=== PATIENT | female | born 1940 | race American Indian/Alaskan Native ===

== ENCOUNTER 2018-01-16 22:59 | Emergency (ER) | payer MEDICARE ==
[2018-01-16 23:57] LABS: Basophils % (Auto) 0.7 % (0.0-1.8); Eosinophils # (Auto) 0.1 K/mm3 (0.0-0.4); Eosinophils % (Auto) 2.4 % (0.0-4.3); Hematocrit 35.9 % (30.3-42.9); Lymphocytes # (Auto) 1.6 K/mm3 (1.2-5.4); Mean Corpuscular HGB Conc 34 % (30-34); Mean Corpuscular Hemoglobin 29 pg (28-32); Mean Corpuscular Volume 87 fl (79-97); Monocytes # (Auto) 0.4 K/mm3 (0.0-0.8); Monocytes % (Auto) 9.3 % (0.0-7.3); Platelet Count 216 K/mm3 (140-440); Red Blood Count 4.12 M/mm3 (3.65-5.03); Red Cell Distribution Width 19.3 % (13.2-15.2)
[2018-01-17 00:19] LABS: Alanine Aminotransferase 17 units/L (7-56); Albumin 3.8 g/dL (3.9-5); BUN/Creatinine Ratio 18; Blood Urea Nitrogen 14 mg/dL (7-17); Calcium 9.3 mg/dL (8.4-10.2); Hemolysis Index 4
[2018-01-17 02:37] LABS: Bilirubin,Urine NEG (Negative); Blood,Urine NEG (Negative); Color,Urine Yellow (Yellow); Mucus,Urine FEW /HPF; Protein,Urine <15 mg/dL mg/dL (Negative)
[2018-01-17 02:47] LABS: Amphetamine Screen,Urine PRESUMPTIVE NEGATIVE; Benzodiazepines Screen,Urine PRESUMPTIVE NEGATIVE; Cannabinoid Screen,Urine PRESUMPTIVE NEGATIVE; Cocaine Screen,Urine PRESUMPTIVE NEGATIVE; Methadone Screen,Urine PRESUMPTIVE NEGATIVE; Opiate Screen,Urine PRESUMPTIVE NEGATIVE
--- NOTE | 2018-01-17 02:59 | Emergency Department Report ---
HPI - General Chief Complaint: Altered Mental Status Time Seen by Provider: 01/17/18 02:36 - HPI HPI: Room 26 The patient is an 78-year-old female presenting with a chief complaint altered mental status and right knee pain. The patient's states the patient was at his son's house. The states he came to the house at approximately 17:00 and the patient was complaining of pain in her right knee. He states he noticed some bruising above the right knee. He states approximately 2-3 hours later while the patient was sitting at rest she began acting sleepy and had decreased responsiveness. When asked about this the patient states she feels as though she "couldn't do nothing." 9 chest pain, shortness of breath nausea or vomiting. Patient denies any history of fevers. The patient states her knee pain has resolved and she is currently pain free. Location: Mental status Duration: [See above] Quality: Altered Severity: Moderate Modifying factors: [see above] Context: [see above] Mode of transportation: [not driving] ED Past Medical Hx - Past Medical History Hx Hypertension: Yes Hx CVA: Yes Hx Diabetes: Yes Hx Dementia: Yes Additional medical history: High Cholesterol - Surgical History Additional Surgical History: ankle surgery, ear surgery - Family History Family history: no significant - Social History Smoking Status: Never Smoker Substance Use Type: None - Medications Home Medications: Home Medications Medication Instructions Recorded Confirmed Last Taken Type Hydrochlorothiazide [HCTZ] 25 mg PO DAILY 03/21/16 03/21/16 Unknown History Pregabalin [Lyrica] 1 tab PO BID 03/21/16 03/21/16 Unknown History HYDROcodone/APAP 5-325 [Cameron 1 each PO Q6HR PRN #20 tablet 03/22/16 Unknown Rx 5/325] ED Review of Systems ROS: Stated complaint: INSECT BITES/RT LEG Other details as noted in HPI Constitutional: denies: fever Eyes: denies: eye pain ENT: denies: throat pain Respiratory: denies: shortness of breath Cardiovascular: denies: chest pain Gastrointestinal: denies: abdominal pain, nausea, vomiting Genitourinary: denies: dysuria Musculoskeletal: arthralgia Skin: change in color Neurological: confusion. denies: headache Physical Exam - Physical Exam Vital Signs: Vital Signs 01/16/18 01/16/18 01/16/18 22:32 22:45 23:00 Temperature Pulse Rate Respiratory Rate Blood Pressure 123/53 126/57 O2 Sat by Pulse 94 97 97 Oximetry 01/16/18 01/16/18 01/17/18 23:09 23:23 00:08 Temperature 97.6 F Pulse Rate 48 L Respiratory 18 Rate Blood Pressure 137/58 120/74 120/74 O2 Sat by Pulse 100 97 98 Oximetry 01/17/18 01/17/18 01/17/18 00:16 00:30 00:46 Temperature Pulse Rate 54 L 50 L 48 L Respiratory 16 17 15 Rate Blood Pressure 120/74 120/74 120/74 O2 Sat by Pulse 100 99 99 Oximetry 01/17/18 01/17/18 01/17/18 01:00 01:16 01:30 Temperature Pulse Rate 53 L 48 L Respiratory 9 L 12 14 Rate Blood Pressure 120/74 120/74 120/74 O2 Sat by Pulse 100 100 Oximetry 01/17/18 02:31 Temperature Pulse Rate 58 L Respiratory 18 Rate Blood Pressure O2 Sat by Pulse 100 Oximetry Physical Exam: GENERAL: The patient is well-developed well-nourished elderly female sitting in a wheelchair not appearing to be in acute distress. [] HEENT: Normocephalic. Atraumatic. Extraocular motions are intact. Patient has moist mucous membranes. NECK: Supple. Trachea midline CHEST/LUNGS: Clear to auscultation. There is no respiratory distress noted. HEART/CARDIOVASCULAR: Regular. There is no tachycardia. There is no gallop rub or murmur. ABDOMEN: Abdomen is soft, nontender. Patient has normal bowel sounds. There is no abdominal distention. SKIN: There is an approximately 3 cm diameter irregularly circular region of pale erythema/induration superior to the right knee. No lacerations. There is no diaphoresis. NEURO: The patient is awake and alert. The patient is cooperative. The patient has no focal neurologic deficits. The patient has normal speech. Cranial nerves II through XII grossly intact, no drift MUSCULOSKELETAL: There is no tenderness or deformity. ED Course Vital Signs 01/16/18 01/16/18 01/16/18 22:32 22:45 23:00 Temperature Pulse Rate Respiratory Rate Blood Pressure 123/53 126/57 O2 Sat by Pulse 94 97 97 Oximetry 01/16/18 01/16/18 01/17/18 23:09 23:23 00:08 Temperature 97.6 F Pulse Rate 48 L Respiratory 18 Rate Blood Pressure 137/58 120/74 120/74 O2 Sat by Pulse 100 97 98 Oximetry 01/17/18 01/17/18 01/17/18 00:16 00:30 00:46 Temperature Pulse Rate 54 L 50 L 48 L Respiratory 16 17 15 Rate Blood Pressure 120/74 120/74 120/74 O2 Sat by Pulse 100 99 99 Oximetry 01/17/18 01/17/18 01/17/18 01:00 01:16 01:30 Temperature Pulse Rate 53 L 48 L Respiratory 9 L 12 14 Rate Blood Pressure 120/74 120/74 120/74 O2 Sat by Pulse 100 100 Oximetry 01/17/18 02:31 Temperature Pulse Rate 58 L Respiratory 18 Rate Blood Pressure O2 Sat by Pulse 100 Oximetry - Reevaluation(s) Reevaluation #1: 01/17/18 04:05 Patient reports something (potentially television remote control) fell from above her striking her head in the frontal region just inside the hairline. There was no loss of consciousness but patient complained of headache. Examination of the scalp does not reveal any evidence of traumatic injury. I will send the patient back over for a repeat head CT for evaluation ED Medical Decision Making - Lab Data Result diagrams: 01/16/18 23:24 01/16/18 23:24 Laboratory Tests 01/16/18 01/16/18 01/16/18 23:21 23:24 23:24 WBC 4.9 RBC 4.12 Hgb 12.0 Hct 35.9 MCV 87 MCH 29 MCHC 34 RDW 19.3 H Plt Count 216 Lymph % (Auto) 32.0 Bee % (Auto) 9.3 H Eos % (Auto) 2.4 Baso % (Auto) 0.7 Lymph # 1.6 Bee # 0.4 Eos # 0.1 Baso # 0.0 Seg Neutrophils % 55.6 Seg Neutrophils # 2.7 Sodium 138 Potassium 3.7 Chloride 99.3 Carbon Dioxide 27 Anion Gap 15 BUN 14 Creatinine 0.8 Estimated GFR > 60 BUN/Creatinine Ratio 18 Glucose 116 H Calcium 9.3 Total Bilirubin 0.20 AST 22 ALT 17 Alkaline Phosphatase 73 Troponin T Total Protein 7.0 Albumin 3.8 L Albumin/Globulin Ratio 1.2 TSH Urine Color Yellow Urine Turbidity Clear Urine pH 5.0 Ur Specific [place] 1.019 Urine Protein <15 mg/dl Urine Glucose (UA) Neg Urine Ketones Neg Urine Blood Neg Urine Nitrite Neg Urine Bilirubin Neg Urine Urobilinogen 2.0 Ur Leukocyte Esterase Neg Urine WBC (Auto) 1.0 Urine RBC (Auto) 6.0 U Epithel Cells (Auto) 1.0 Urine Mucus Few Urine Opiates Screen Urine Methadone Screen Ur Barbiturates Screen Ur Phencyclidine Scrn Ur Amphetamines Screen U Benzodiazepines Scrn Urine Cocaine Screen U Marijuana (THC) Screen Drugs of Abuse Note Plasma/Serum Alcohol 01/16/18 01/16/18 01/16/18 23:24 23:24 23:47 WBC RBC Hgb Hct MCV MCH MCHC RDW Plt Count Lymph % (Auto) Bee % (Auto) Eos % (Auto) Baso % (Auto) Lymph # Bee # Eos # Baso # Seg Neutrophils % Seg Neutrophils # Sodium Potassium Chloride Carbon Dioxide Anion Gap BUN Creatinine Estimated GFR BUN/Creatinine Ratio Glucose Calcium Total Bilirubin AST ALT Alkaline Phosphatase Troponin T < 0.010 Total Protein Albumin Albumin/Globulin Ratio TSH 4.130 Urine Color Urine Turbidity Urine pH Ur Specific [place] Urine Protein Urine Glucose (UA) Urine Ketones Urine Blood Urine Nitrite Urine Bilirubin Urine Urobilinogen Ur Leukocyte Esterase Urine WBC (Auto) Urine RBC (Auto) U Epithel Cells (Auto) Urine Mucus Urine Opiates Screen Urine Methadone Screen Ur Barbiturates Screen Ur Phencyclidine Scrn Ur Amphetamines Screen U Benzodiazepines Scrn Urine Cocaine Screen U Marijuana (THC) Screen Drugs of Abuse Note Plasma/Serum Alcohol < 0.01 01/16/18 Unknown WBC RBC Hgb Hct MCV MCH MCHC RDW Plt Count Lymph % (Auto) Bee % (Auto) Eos % (Auto) Baso % (Auto) Lymph # Bee # Eos # Baso # Seg Neutrophils % Seg Neutrophils # Sodium Potassium Chloride Carbon Dioxide Anion Gap BUN Creatinine Estimated GFR BUN/Creatinine Ratio Glucose Calcium Total Bilirubin AST ALT Alkaline Phosphatase Troponin T Total Protein Albumin Albumin/Globulin Ratio TSH Urine Color Urine Turbidity Urine pH Ur Specific [place] Urine Protein Urine Glucose (UA) Urine Ketones Urine Blood Urine Nitrite Urine Bilirubin Urine Urobilinogen Ur Leukocyte Esterase Urine WBC (Auto) Urine RBC (Auto) U Epithel Cells (Auto) Urine Mucus Urine Opiates Screen Presumptive negative Urine Methadone Screen Presumptive negative Ur Barbiturates Screen Presumptive negative Ur Phencyclidine Scrn Presumptive negative Ur Amphetamines Screen Presumptive negative U Benzodiazepines Scrn Presumptive negative Urine Cocaine Screen Presumptive negative U Marijuana (THC) Screen Presumptive negative Drugs of Abuse Note Disclamer Plasma/Serum Alcohol - EKG Data -: EKG Interpreted by Ri EKG shows normal: sinus rhythm Rate: bradycardia (46 bpm) - EKG Data When compared to previous EKG there are: previous EKG unavailable Interpretation: nonspecific ST-T wave liam (flattened T waves in leads aVF, V3, V4, V5, V6) - Radiology Data Radiology results: report reviewed (CT head #1, CT head #2, right knee x-ray), image reviewed (CT head #1, CT head #2, right knee x-ray) [address] [address] Cat Scan Report Signed Patient: BEATRIZ BROWN MR#: [id number] : 1940 Acct:[id number] Age/Sex: 78 / F ADM Date: 01/16/18 Loc: ED Attending Dr: Ordering Physician: BENY NOBLES MD Date of Service: 01/17/18 Procedure(s): CT head/brain wo con Accession Number(s): [id number] cc: BENY NOBLES MD FINAL REPORT PROCEDURE: CT HEAD/BRAIN WO CON TECHNIQUE: Computerized tomography of the head was performed without contrast material. HISTORY: altered mental status COMPARISON: No prior studies are available for comparison. FINDINGS: Skull and scalp: Normal. Paranasal sinuses: Normal. Ventricles and subarachnoid spaces: Normal. Cerebrum: There is no evidence of acute intracranial hemorrhage, hematoma, infarction, midline displacement or mass. There is moderate atrophy. Moderate periventricular deep white matter changes noted.. Cerebellum and brainstem: No evidence of hemorrhage, acute infarction or mass. Vasculature: Normal. Comments: None. IMPRESSION: There is no evidence of an acute intracranial process. Moderate atrophy and moderate periventricular deep white matter changes noted. Transcribed By: [facility] Dictated By: ANSELMO PURVIS MD Electronically Authenticated By: ANSELMO PURVIS MD Signed Date/Time: 01/17/18350 DD/ 0 TD/TT: 01/17/[address] [address] XRay Report Signed Patient: BEATRIZ BROWN MR#: [id number] : 1940 Acct:[id number] Age/Sex: 78 / F ADM Date: 01/16/18 Loc: ED Attending Dr: Ordering Physician: BENY NOBLES MD Date of Service: 01/17/18 Procedure(s): XR knee 3V RT Accession Number(s): [id number] cc: BENY NOBLES MD Fluoro Time In Minutes: FINAL REPORT PROCEDURE: XR KNEE 3V RT TECHNIQUE: RIGHT knee radiographs, AP, lateral and oblique views. CPT 12637 HISTORY: pain COMPARISON: No prior studies are available for comparison. FINDINGS: Fracture (s) and/or Dislocation(s): None . Alignment: Normal . Joint space(s): Mild narrowing of the joint spaces. Slight spur formation off of the osseous structures.. Soft tissues: Normal . Bone mineralization: Normal . Foreign bodies: None . IMPRESSION: There is no evidence of an acute fracture or dislocation. Mild arthritis. Transcribed By: [facility] Dictated By: ANSELMO PURVIS MD Electronically Authenticated By: ANSELMO PURVIS MD Signed Date/Time: 01/17/18324 DD/ 4 TD/TT: 01/17/18324 [facility] [address] [place] [address] Cat Scan Report Signed Patient: BEATRIZ BROWN MR#: [id number] : 1940 Acct:[id number] Age/Sex: 78 / F ADM Date: 01/16/18 Loc: ED Attending Dr: Ordering Physician: BENY NOBLES MD Date of Service: 01/17/18 Procedure(s): CT head/brain wo con Accession Number(s): [id number] cc: BENY NOBLES MD FINAL REPORT PROCEDURE: CT HEAD/BRAIN WO CON TECHNIQUE: Computerized tomography of the head was performed without contrast material. HISTORY: headache after object fell striking head COMPARISON: Earlier the same date FINDINGS: Skull and scalp: Normal. Paranasal sinuses: Normal. Ventricles and subarachnoid spaces: Normal. Cerebrum: No evidence of hemorrhage, acute infarction or mass. Moderate atrophy and moderate periventricular deep white matter changes are noted. No change since prior exam.. Cerebellum and brainstem: No evidence of hemorrhage, acute infarction or mass. Vasculature: Normal. Comments: None. IMPRESSION: There is no evidence of an acute intracranial process. There is moderate atrophy and moderate periventricular deep white matter changes. No change since prior exam. Transcribed By: [facility] Dictated By: ANSELMO PURVIS MD Electronically Authenticated By: ANSELMO PURVIS MD Signed Date/Time: 01/17/18450 DD/ 0 TD/TT: 01/17/18450 - Differential Diagnosis bradycardia, ICH, TIA, dysrhythmia, altered mental status Critical care attestation.: If time is entered above; I have spent that time in minutes in the direct care of this critically ill patient, excluding procedure time. ED Disposition Clinical Impression: Acute alteration in mental status, Bradycardia Disposition: -09 OP ADMIT IP TO THIS HOSP Is pt being admited?: Yes Condition: Fair Referrals: FARIBA THURSTON MD [Primary Care Provider] - 3-5 Days Time of Disposition: 05:03 (hospitalist paged (Dr. Gege Graff))
--- NOTE | 2018-01-17 03:32 | XRay Report ---
FINAL REPORT PROCEDURE: XR KNEE 3V RT TECHNIQUE: RIGHT knee radiographs, AP, lateral and oblique views. CPT 43037 HISTORY: pain COMPARISON: No prior studies are available for comparison. FINDINGS: Fracture (s) and/or Dislocation(s): None . Alignment: Normal . Joint space(s): Mild narrowing of the joint spaces. Slight spur formation off of the osseous structures.. Soft tissues: Normal . Bone mineralization: Normal . Foreign bodies: None . IMPRESSION: There is no evidence of an acute fracture or dislocation. Mild arthritis.
--- NOTE | 2018-01-17 03:58 | Cat Scan Report ---
FINAL REPORT PROCEDURE: CT HEAD/BRAIN WO CON TECHNIQUE: Computerized tomography of the head was performed without contrast material. HISTORY: altered mental status COMPARISON: No prior studies are available for comparison. FINDINGS: Skull and scalp: Normal. Paranasal sinuses: Normal. Ventricles and subarachnoid spaces: Normal. Cerebrum: There is no evidence of acute intracranial hemorrhage, hematoma, infarction, midline displacement or mass. There is moderate atrophy. Moderate periventricular deep white matter changes noted.. Cerebellum and brainstem: No evidence of hemorrhage, acute infarction or mass. Vasculature: Normal. Comments: None. IMPRESSION: There is no evidence of an acute intracranial process. Moderate atrophy and moderate periventricular deep white matter changes noted.
--- NOTE | 2018-01-17 04:58 | Cat Scan Report ---
FINAL REPORT PROCEDURE: CT HEAD/BRAIN WO CON TECHNIQUE: Computerized tomography of the head was performed without contrast material. HISTORY: headache after object fell striking head COMPARISON: Earlier the same date FINDINGS: Skull and scalp: Normal. Paranasal sinuses: Normal. Ventricles and subarachnoid spaces: Normal. Cerebrum: No evidence of hemorrhage, acute infarction or mass. Moderate atrophy and moderate periventricular deep white matter changes are noted. No change since prior exam.. Cerebellum and brainstem: No evidence of hemorrhage, acute infarction or mass. Vasculature: Normal. Comments: None. IMPRESSION: There is no evidence of an acute intracranial process. There is moderate atrophy and moderate periventricular deep white matter changes. No change since prior exam.
[2018-01-17] MEDS ORDERED: SODIUM CHLORIDE FLUSH SYRINGE 10 ML IV PRN (06:02)
[2018-01-17] MEDS ORDERED: ZOFRAN IV PRN (06:02)
[2018-01-17] MEDS ORDERED: TYLENOL PO PRN (06:02)
--- NOTE | 2018-01-17 06:02 | History and Physical Report ---
History of Present Illness Date of examination: 01/17/18 History of present illness: 78-year-old woman with a history of diabetes, dementia, CVA, hyperlipidemia comes emergency room because the spouse found her withdecreased responsiveness. Early in the day, she complained of knee pain. Review of system is unobtainable secondary to dementia PAST MEDICAL HISTORY: Diabetes, dementia, CVA, hyperlipidemia PAST SURGICAL HISTORY: Ankle, ear SOCIAL HISTORY: Social alcohol, no drugs, tobacco FAMILY HISTORY: Hypertension Medications and Allergies Allergies Allergy/AdvReac Type Severity Reaction Status Date / Time bee venom protein (honey bee) Allergy Shortness Verified 01/17/18 00:26 of Breath Home Medications Medication Instructions Recorded Confirmed Last Taken Type Hydrochlorothiazide [HCTZ] 25 mg PO DAILY 03/21/16 03/21/16 01/16/18 History Pregabalin [Lyrica] 1 tab PO BID 03/21/16 03/21/16 01/16/18 History HYDROcodone/APAP 5-325 [[place] 1 each PO Q6HR PRN #20 tablet 03/22/16 Unknown Rx 5-325 mg TAB] Aspirin 01/17/18 Unknown History AtorvaSTATin 20 mg PO DAILY 01/17/18 01/17/18 01/16/18 History Hydrochlorothiazide 25 mg PO DAILY 01/17/18 01/17/18 01/16/18 History Lyrica 100 mg PO BID 01/17/18 01/17/18 01/16/18 History Memantine HCl 10 mg PO BID 01/17/18 01/17/18 01/16/18 History Exam - Physical Exam Narrative exam: Gen. appearance: Patient lying in bed, no apparent distress HEENT: Normocephalic, atraumatic, pupils equally round and reactive to light, extraocular movement intact, and no sclericterus,. No JVD or thyromegaly or nodule,neck supple, no carotid bruit ,mucous membranes moist, no exudate or erythema Heart: S1, S2, regular rate and rhythm Lungs: Clear bilaterally, breathing comfortable Abdomen: Positive bowel sounds, non-tender, nondistended, no organomegaly Extremity:no edema cyanosis, clubbing Skin: no rash, dry, warm Neuro: Oriented 3, cranial nerves II-12 intact, speech is fluent, motor and sensory intact - Constitutional Vitals: Temp Pulse Resp BP Pulse Ox 97.6 F 51 L 16 125/50 97 01/16/18 23:09 01/17/18 05:51 01/17/18 05:30 01/17/18 05:51 01/17/18 05:51 Results - Labs CBC & Chem 7: 01/16/18 23:24 01/16/18 23:24 Labs: Abnormal lab results 01/16/18 01/16/18 Range/Units 23:24 23:24 RDW 19.3 H (13.2-15.2) % Josephine % (Auto) 9.3 H (0.0-7.3) % Glucose 116 H (65-100) mg/dL Albumin 3.8 L (3.9-5) g/dL - Imaging and Cardiology CT Scan - head: report reviewed Assessment and Plan nee xray reviewed Assessment Bradycardia, symptomatic Dabetes Dementia CVA hyperlipidemia Plan Admit medicine Cardiac enzymes, consult cardiology Check fingersticks initiate insulin continue appropriate outpatient medications DVT prophylaxis
[2018-01-17] MEDS ORDERED: PREGABALIN PO SCH ×2 (10:00→19:00)
[2018-01-17] MEDS ORDERED: SODIUM CHLORIDE FLUSH SYRINGE 10 ML IV SCH (10:00)
[2018-01-17] MEDS ORDERED: LOVENOX SUB-Q SCH (10:00)
--- NOTE | 2018-01-17 13:40 | Consultation ---
History of Present Illness Consult date: 01/17/18 Requesting physician: NILS RODGERS Consult reason: bradycardia History of present illness: The patient is an 78-year-old female with a past medical history significant for HTN, HLP, DM, PVD, CVI, TIAs, occlusion of right internal carotid artery, diastolic dysfunction. She is followed in our office by Dr. Maher. She presented with complaints of AMS and right knee pain. The patient's states the patient was complaining of pain in her right knee. He states he noticed some bruising above the right knee and 2 areas on right knee which appear to be insect bites. He states approximately 2-3 hours later while the patient was sitting at rest she began acting sleepy. Pt denies any cardiac complaints, including chest pain, SOB, palpitations, n/v, diaphoresis, dizziness or syncope. Following arrival, pt was noted to have sinus bradycardia , HR in 40s, and thus cardiology has been consulted. On evaluation, pt is in NSR with HR 60s. Echo done 01/2017 showed EF 55-60%, impaired relaxation. PET MPI done 04/2017 was negative for significant ischemia, normal LVEF. Past History Past Medical History: diabetes, hypertension, hyperlipidemia, other (CVI; PVD; TIAs, occlusion of right internal carotid artery) Social history: lives with family. denies: smoking, alcohol abuse, prescription drug abuse Medications and Allergies Allergies Allergy/AdvReac Type Severity Reaction Status Date / Time bee venom protein (honey bee) Allergy Shortness Verified 01/17/18 00:26 of Breath Home Medications Medication Instructions Recorded Confirmed Last Taken Type Hydrochlorothiazide [HCTZ] 25 mg PO DAILY 03/21/16 03/21/16 01/16/18 History Pregabalin [Lyrica] 1 tab PO BID 03/21/16 03/21/16 01/16/18 History HYDROcodone/APAP 5-325 [[place] 1 each PO Q6HR PRN #20 tablet 03/22/16 Unknown Rx 5/325] Aspirin 01/17/18 Unknown History AtorvaSTATin 20 mg PO DAILY 01/17/18 01/17/18 01/16/18 History Donepezil HCl 5 mg PO DAILY 01/17/18 01/17/18 01/16/18 History Hydrochlorothiazide 25 mg PO DAILY 01/17/18 01/17/18 01/16/18 History Lyrica 100 mg PO BID 01/17/18 01/17/18 01/16/18 History Memantine HCl 10 mg PO BID 01/17/18 01/17/18 01/16/18 History Active Meds: Active Medications Acetaminophen (Tylenol) 650 mg PO Q4H PRN PRN Reason: Pain MILD(1-3)/Fever >100.5/MALDONADO Enoxaparin Sodium (Lovenox) 40 mg SUB-Q QDAY [facility] Last Admin: 01/17/18 09:45 Dose: 40 mg Miscellaneous Medication (Pregabalin [Lyrica]) 1 tab PO BID [facility] Ondansetron HCl (Zofran) 4 mg IV Q8H PRN PRN Reason: Nausea And Vomiting Sodium Chloride (Sodium Chloride Flush Syringe 10 Ml) 10 ml IV BID [facility] Sodium Chloride (Sodium Chloride Flush Syringe 10 Ml) 10 ml IV PRN PRN PRN Reason: LINE FLUSH Review of Systems Constitutional: lethargy, no weight loss, no weight gain, no fever, no chills, no sweats Ears, nose, mouth and throat: no ear pain, no nose pain, no sinus pressure, no sinus pain Cardiovascular: leg edema (chronic), no chest pain, no orthopnea, no palpitations, no rapid/irregular heart beat, no edema, no syncope, no lightheadedness, no shortness of breath, no dyspnea on exertion Gastrointestinal: no abdominal pain, no nausea, no vomiting, no diarrhea, no constipation, no change in bowel habits Genitourinary Female: no pelvic pain, no flank pain, no dysuria, no urinary frequency, no urgency Musculoskeletal: no neck stiffness, no neck pain Integumentary: no rash, no pruritis, no redness Neurological: no head injury, no paralysis, no weakness, no parathesias, no numbness, no tingling, no seizures, no syncope Psychiatric: no anxiety Endocrine: no cold intolerance, no heat intolerance Hematologic/Lymphatic: no easy bruising, no easy bleeding, no lymphadenopathy Allergic/Immunologic: no urticaria, no wheezing, no persistent infections Physical Examination Vital Signs Pulse Ox 94 01/16/18 22:32 General appearance: no acute distress HEENT: Positive: PERRL, Normocephaly, Mucus Membranes Moist Neck: Positive: neck supple, trachea midline Cardiac: Positive: Reg Rate and Rhythm, S1/S2 Lungs: Positive: clear to auscultation Neuro: Positive: Grossly Intact Abdomen: Positive: Soft. Negative: Tender Skin: Negative: Rash, Wound Musculoskeletal: No Pain Extremities: Present: +1 Edema (BLE, chronic venous stasis skin changes noted bilaterally ) Results 01/16/18 23:24 01/16/18 23:24 Cardiac Enzymes 01/16/18 Range/Units 23:24 AST 22 (5-40) units/L CBC 01/16/18 Range/Units 23:24 WBC 4.9 (4.5-11.0) K/mm3 RBC 4.12 (3.65-5.03) M/mm3 Hgb 12.0 (10.1-14.3) gm/dl Hct 35.9 (30.3-42.9) % Plt Count 216 (140-440) K/mm3 Lymph # 1.6 (1.2-5.4) K/mm3 [place] # 0.4 (0.0-0.8) K/mm3 Eos # 0.1 (0.0-0.4) K/mm3 Baso # 0.0 (0.0-0.1) K/mm3 Comprehensive Metabolic Panel 01/16/18 Range/Units 23:24 Sodium 138 (137-145) mmol/L Potassium 3.7 (3.6-5.0) mmol/L Chloride 99.3 (98-107) mmol/L Carbon Dioxide 27 (22-30) mmol/L BUN 14 (7-17) mg/dL Creatinine 0.8 (0.7-1.2) mg/dL Glucose 116 H (65-100) mg/dL Calcium 9.3 (8.4-10.2) mg/dL AST 22 (5-40) units/L ALT 17 (7-56) units/L Alkaline Phosphatase 73 (35-129) units/L Total Protein 7.0 (6.3-8.2) g/dL Albumin 3.8 L (3.9-5) g/dL - Imaging and Cardiology Echo: report reviewed (01/2017 showed EF 55-60%, impaired relaxation. ) EKG: report reviewed, image reviewed EKG interpretations - Telemetry EKG Rhythm: Sinus Rhythm - EKG Sinus rhythms and dysrhythmias: sinus rhythm Assessment and Plan Assessment: Asymptomatic sinus bradycardia - improved; TSH WNL AMS - improved; head CT with NAF RLE pain / ? insect bite - right knee XR with NAF HTN HLP DM PVD / CVI H/o TIAs H/o occlusion of right internal carotid artery Plan: Currently stable cardiac status. No plans for any additional cardiac evaluation at this time. Pt may discharge home from cardiology standpoint. Follow up in our [place] office with Dr. Maher on 03/14/2018 @ 2:00PM. The patient has been seen in conjunction with Dr. Mullins who agrees with the assessment and plan of care.
[2018-01-17 15:53] LABS: Creatine Kinase MB 1.3 ng/mL (0.0-4.0)
--- NOTE | 2018-01-17 16:21 | Discharge Summary ---
Providers - Providers Date of Admission: 01/17/18 06:02 Date of discharge: 01/17/18 Attending physician: LINETTE MULLER 01/17/18 06:02 Consult to Physician [CONS] Routine Comment: Consulting Provider: STEPHANIE HINDS Physician Instructions: Reason For Exam: BRADYCARDIA Primary care physician: FARIBA THURSTON MD Hospitalization Condition: Fair Hospital course: Patient is a 78-year-old woman with a medical history of HTN, HLP, DM, PVD, CVI , TIAs, occlusion of right internal carotid artery, diastolic dysfunction and Dementia who pw AMS, unresponsive state. Patient main compliant is bilateral knee pains and possible insect bites right knee. Pt was noted to have sinus bradycardia, HR in 40s, and thus cardiology has been consulted. Echo done 01/2017 showed EF 55-60%, impaired relaxation. PET MPI done 04/2017 was negative for significant ischemia, normal LVEF. Sinus bradycardia - improved; TSH WNL, hold off on Aricept AMS with encephalopathy, resolved RLE pain / ? insect bite - right knee XR with NAF: treat with Tylenol HTN HLP DM PVD / CVI H/o TIAs H/o occlusion of right internal carotid artery Patient has been cleared for discharge by Cardiology Disposition: DC-01 TO HOME OR SELFCARE Time spent for discharge: 32 min Core Measure Documentation - Palliative Care Palliative Care/ Comfort Measures: Not Applicable - Core Measures Any of the following diagnoses?: none - VTE Discharge Requirements Deep Vein Thrombosis/Pulmonary Embolism Present on Admission: No Has pt received <5 days of overlap therapy or INR<2.0: No Anticoagulant overlap therapy prescribed at discharge: No Contraindication No Overlap Therapy order at DC: Not Indicated Exam - Physical Exam Narrative exam: GEN: WDWN, NAD, Awake, Alert, Orientated x 1 HEENT: NCAT, EOMI, PERRL, OP Clear NECK: supple, no adenopathy, no thyromegaly, no JVD CVS/HEART: heart rate is SR 58 on repeat, normal S1S2, pulses present bilaterally CHEST/LUNGS: CTA B, Symmetrical chest expansion, good air entry bilaterally GI/Abdomen: soft, NTND, good bowel sounds, no guarding or rebound /Bladder: no suprapubic tenderness, no CVA or paraspinal tenderness EXT/Skin: ble edema MSK: FROM x 4 Neuro: CN 2-12 grossly intact, no new focal deficits Psych: calm - Constitutional Vitals: Temp Pulse Resp BP Pulse Ox 97.8 F 48 L 18 149/90 100 01/17/18 07:40 01/17/18 06:51 01/17/18 07:40 01/17/18 07:01 01/17/18 06:51 Plan Activity: up only with assistance, fall precautions, other (no strenous activity ) Diet: low salt, diabetic Additional Instructions: Stop the Aricept and notify PCP. Check heart rate daily Follow up with: FARIBA THURSTON MD [Primary Care Provider] - 3-5 Days CHARANDG BLOUNT MD [Staff Physician] - 03/14/18 2:00 pm
[2018-01-17 18:13] VITALS: BP 153/59
== END 2018-01-17 08:09 | disposition admitted as inpatient to this hospital (09) ==
LOC: ED 22:59 → 4A 01-17 06:02 → UNDOADMIN 01-17 06:02 → UNDODISIN 01-17 18:10
DX: M25.561 Pain in right knee (principal); R41.82 Altered mental status, unspecified; I10 Essential (primary) hypertension; E11.9 Type 2 diabetes mellitus without complications; E78.00 Pure hypercholesterolemia, unspecified
CPT/HCPCS: 36415; 70450; 73562; 80053; 80307; 81001; 82550; 82553; 84443; 84484; 85025; 93005; 93010; 99285; G0480; J1650; 80320

== ENCOUNTER 2018-03-14 15:41 | Inpatient (IN) | payer MEDICARE ==
[2018-03-14 18:11] LABS: Eosinophils % (Auto) 2.7 % (0.0-4.3); Hemoglobin 12.8 gm/dl (10.1-14.3); Lymphocytes % (Auto) 27.4 % (13.4-35.0)
[2018-03-14 18:28] LABS: INR 1.09 (0.87-1.13)
[2018-03-14 18:29] LABS: Partial Thromboplastin Time 37.3 Sec. (24.2-36.6)
[2018-03-14 18:42] LABS: Basophils % (Auto) 0.6 % (0.0-1.8); Eosinophils # (Auto) 0.1 K/mm3 (0.0-0.4); Hematocrit 39.1 % (30.3-42.9); Lymphocytes # (Auto) 1.2 K/mm3 (1.2-5.4); Mean Corpuscular HGB Conc 33 % (30-34); Mean Corpuscular Hemoglobin 29 pg (28-32); Mean Corpuscular Volume 88 fl (79-97); Monocytes # (Auto) 0.3 K/mm3 (0.0-0.8); Platelet Count 234 K/mm3 (140-440); Red Blood Count 4.46 M/mm3 (3.65-5.03); Red Cell Distribution Width 18.8 % (13.2-15.2)
--- NOTE | 2018-03-14 18:43 | Cat Scan Report ---
FINAL REPORT PROCEDURE: CT HEAD/BRAIN WO CON TECHNIQUE: Computerized tomography of the head was performed without contrast material. HISTORY: transient ams, hx of cva left weakness, dementia COMPARISON: 01/17/2018 FINDINGS: There are diffuse involutional changes in the right middle cerebral artery territory, unchanged compared to the prior study. There is no CT evidence of acute intracranial hemorrhage, mass, hydrocephalus, or acute territorial infarction. The intracranial arteries are symmetric in density. Calvarium is intact. Visualized paranasal sinuses and mastoids are aerated. IMPRESSION: No CT evidence of acute intracranial abnormality
[2018-03-14 20:04] LABS: Alanine Aminotransferase 26 units/L (7-56); Albumin 4.3 g/dL (3.9-5); BUN/Creatinine Ratio 10; Blood Urea Nitrogen 8 mg/dL (7-17); Calcium 9.4 mg/dL (8.4-10.2); Hemolysis Index 43
--- NOTE | 2018-03-14 21:33 | Emergency Department Report ---
ED Neuro Deficit HPI - General Chief Complaint: Neuro Symptoms/Deficit Stated Complaint: HEART PROBLEMS Time Seen by Provider: 03/14/18 21:26 Source: patient, family Mode of arrival: Wheelchair Limitations: Physical Limitation, Other - History of Present Illness Initial Comments: Patient is 78 years old female with history of multiple sclerosis stroke with left-sided weakness, dementia and bradycardia. Patient was sent from Dr. Greco office as the patient was unresponsive in his office. Patient was found to have a heart rate of 40 and she was told that her blood sugar was in the 70s. Patient is alert but disoriented in place and time but not person. Patient denied any new weakness. History is limited because of the patient condition and dementia. Presenting Symptoms: Present: Altered Mental Status - Related Data Home Medications: Home Medications Medication Instructions Recorded Confirmed Last Taken Pregabalin [Lyrica] 1 tab PO BID 03/21/16 03/14/18 01/16/18 hydroCHLOROthiazide [HCTZ] 25 mg PO DAILY 03/21/16 03/14/18 01/16/18 Aspirin 81 mg PO DAILY 01/17/18 03/14/18 Unknown AtorvaSTATin 20 mg PO DAILY 01/17/18 03/14/18 01/16/18 Hydrochlorothiazide 25 mg PO DAILY 01/17/18 03/14/18 01/16/18 Lyrica 100 mg PO BID 01/17/18 03/14/18 01/16/18 Memantine HCl 10 mg PO BID 01/17/18 03/14/18 01/16/18 Previous Rx's Medication Instructions Recorded Last Taken Type HYDROcodone/APAP 5-325 [[place] 1 each PO Q6HR PRN #20 tablet 03/22/16 Unknown Rx 5-325 mg TAB] Allergies/Adverse Reactions: Allergies Allergy/AdvReac Type Severity Reaction Status Date / Time bee venom protein (honey bee) Allergy Shortness Verified 01/17/18 00:26 of Breath ED Review of Systems ROS: Stated complaint: HEART PROBLEMS Other details as noted in HPI Comment: Unobtainable due to pts medical conditions ED Past Medical Hx - Past Medical History Previous Medical History?: Yes Hx Hypertension: Yes Hx CVA: Yes Hx Diabetes: Yes Hx Dementia: Yes Additional medical history: High Cholesterol - Surgical History Past Surgical History?: Yes Additional Surgical History: ankle surgery, ear surgery - Social History Smoking Status: Never Smoker Substance Use Type: None - Medications Home Medications: Home Medications Medication Instructions Recorded Confirmed Last Taken Type Pregabalin [Lyrica] 1 tab PO BID 03/21/16 03/14/18 01/16/18 History hydroCHLOROthiazide [HCTZ] 25 mg PO DAILY 03/21/16 03/14/18 01/16/18 History HYDROcodone/APAP 5-325 [[place] 1 each PO Q6HR PRN #20 tablet 03/22/16 03/14/18 Unknown Rx 5-325 mg TAB] Aspirin 81 mg PO DAILY 01/17/18 03/14/18 Unknown History AtorvaSTATin 20 mg PO DAILY 01/17/18 03/14/18 01/16/18 History Hydrochlorothiazide 25 mg PO DAILY 01/17/18 03/14/18 01/16/18 History Lyrica 100 mg PO BID 01/17/18 03/14/18 01/16/18 History Memantine HCl 10 mg PO BID 01/17/18 03/14/18 01/16/18 History ED Neuro Physical Exam - General Limitations: Altered Mental Status, Physical Limitation, Other General appearance: alert, in no apparent distress Suspected Stroke: Yes - Head Head exam: Present: atraumatic, normocephalic, normal inspection - Eye Eye exam: Present: normal appearance, PERRL - ENT ENT exam: Present: normal exam, normal orophraynx, mucous membranes moist - Neck Neck exam: Present: normal inspection, full ROM. Absent: tenderness, meningismus, lymphadenopathy, thyromegaly - Respiratory Respiratory exam: Present: normal lung sounds bilaterally. Absent: respiratory distress, wheezes, rales, rhonchi, accessory muscle use, decreased breath sounds , prolonged expiratory - Cardiovascular Cardiovascular Exam: Present: bradycardia - GI/Abdominal GI/Abdominal exam: Present: soft. Absent: distended, tenderness, guarding, rebound - Extremities Exam Extremities exam: Present: normal inspection, full ROM, normal capillary refill. Absent: pedal edema, calf tenderness - Back Exam Back exam: Present: normal inspection, full ROM - Neurological Exam Neurological exam: Present: alert, altered, CN II-XII intact - NIHSS Assessment Interval: Baseline 1a. Level of Consciousness: alert/keenly responsive 1b. LOC Questions: answers 1 question correctly 1c. LOC Commands: performs tasks correctly 2. Best Gaze: normal 3. Visual: no visual loss 4. Facial Palsy: normal symmetrical movement 5b. Motor Arm Right: no drift 5a. Motor Arm Left: no drift 6a. Motor Leg Left: no drift 6b. Motor Leg Right: no drift 7. Limb Ataxia: absent 8. Sensory: normal 9. Best Language: no aphasia 10. Dysarthria: normal 11. Extinction/Inattention: no abnormality Total Score: 1 Stroke Severity: Minor Stroke - Skin Skin exam: Present: warm, intact, normal color ED Course Vital Signs 03/14/18 03/14/18 03/14/18 17:02 21:14 22:00 Temperature 97.4 F L 98 F Pulse Rate 58 L 54 L 52 L Respiratory 20 16 13 Rate Blood Pressure 156/72 130/110 Blood Pressure 130/100 [Right] O2 Sat by Pulse 100 96 96 Oximetry - Reevaluation(s) Reevaluation #1: 03/14/18 22:30 I discussed the patient is Dr. Bhatt from [facility], advised to admit patient and they will see the patient in the morning. - EJ/Peripheral Line Neck R Time Out Performed: Yes Indications: nurses unable to establis Skin Cleansed in Sterile Fashion: Yes Size: 18 Dressing Placed: Tegaderm, tape Patient Tolerated Procedure: well, no complications - Lab Data Result diagrams: 03/14/18 17:36 03/14/18 17:36 Lab Results 03/14/18 03/14/18 03/14/18 Range/Units 17:15 17:36 17:36 WBC 4.5 (4.5-11.0) K/mm3 RBC 4.46 (3.65-5.03) M/mm3 Hgb 12.8 (10.1-14.3) gm/dl Hct 39.1 (30.3-42.9) % MCV 88 (79-97) fl MCH 29 (28-32) pg MCHC 33 (30-34) % RDW 18.8 H (13.2-15.2) % Plt Count 234 (140-440) K/mm3 Lymph % (Auto) 27.4 (13.4-35.0) % [place] % (Auto) 7.0 (0.0-7.3) % Eos % (Auto) 2.7 (0.0-4.3) % Baso % (Auto) 0.6 (0.0-1.8) % Lymph # 1.2 (1.2-5.4) K/mm3 [place] # 0.3 (0.0-0.8) K/mm3 Eos # 0.1 (0.0-0.4) K/mm3 Baso # 0.0 (0.0-0.1) K/mm3 Seg Neutrophils % 61.6 (40.0-70.0) % Seg Neutrophils # 2.8 (1.8-7.7) K/mm3 PT (12.2-14.9) Sec. INR (0.87-1.13) APTT (24.2-36.6) Sec. Sodium 139 (137-145) mmol/L Potassium 3.4 L (3.6-5.0) mmol/L Chloride 98.9 (98-107) mmol/L Carbon Dioxide 18 L (22-30) mmol/L Anion Gap 26 mmol/L BUN 8 (7-17) mg/dL Creatinine 0.8 (0.7-1.2) mg/dL Estimated GFR > 60 ml/min BUN/Creatinine Ratio 10 % Glucose 96 (65-100) mg/dL POC Glucose 64 L (70-105) Calcium 9.4 (8.4-10.2) mg/dL Total Bilirubin 0.50 (0.1-1.2) mg/dL AST 33 (5-40) units/L ALT 26 (7-56) units/L Alkaline Phosphatase 70 (35-129) units/L Troponin T (0.00-0.029) ng/mL Total Protein 7.1 (6.3-8.2) g/dL Albumin 4.3 (3.9-5) g/dL Albumin/Globulin Ratio 1.5 % TSH (0.270-4.200) mlU/mL Plasma/Serum Alcohol (0-0.07) % 03/14/18 03/14/18 03/14/18 Range/Units 17:36 17:36 17:36 WBC (4.5-11.0) K/mm3 RBC (3.65-5.03) M/mm3 Hgb (10.1-14.3) gm/dl Hct (30.3-42.9) % MCV (79-97) fl MCH (28-32) pg MCHC (30-34) % RDW (13.2-15.2) % Plt Count (140-440) K/mm3 Lymph % (Auto) (13.4-35.0) % [place] % (Auto) (0.0-7.3) % Eos % (Auto) (0.0-4.3) % Baso % (Auto) (0.0-1.8) % Lymph # (1.2-5.4) K/mm3 [place] # (0.0-0.8) K/mm3 Eos # (0.0-0.4) K/mm3 Baso # (0.0-0.1) K/mm3 Seg Neutrophils % (40.0-70.0) % Seg Neutrophils # (1.8-7.7) K/mm3 PT 14.6 (12.2-14.9) Sec. INR 1.09 (0.87-1.13) APTT 37.3 H (24.2-36.6) Sec. Sodium (137-145) mmol/L Potassium (3.6-5.0) mmol/L Chloride (98-107) mmol/L Carbon Dioxide (22-30) mmol/L Anion Gap mmol/L BUN (7-17) mg/dL Creatinine (0.7-1.2) mg/dL Estimated GFR ml/min BUN/Creatinine Ratio % Glucose (65-100) mg/dL POC Glucose (70-105) Calcium (8.4-10.2) mg/dL Total Bilirubin (0.1-1.2) mg/dL AST (5-40) units/L ALT (7-56) units/L Alkaline Phosphatase (35-129) units/L Troponin T (0.00-0.029) ng/mL Total Protein (6.3-8.2) g/dL Albumin (3.9-5) g/dL Albumin/Globulin Ratio % TSH 2.220 (0.270-4.200) mlU/mL Plasma/Serum Alcohol < 0.01 (0-0.07) % 03/14/18 03/14/18 03/14/18 Range/Units 19:09 21:41 22:40 WBC (4.5-11.0) K/mm3 RBC (3.65-5.03) M/mm3 Hgb (10.1-14.3) gm/dl Hct (30.3-42.9) % MCV (79-97) fl MCH (28-32) pg MCHC (30-34) % RDW (13.2-15.2) % Plt Count (140-440) K/mm3 Lymph % (Auto) (13.4-35.0) % [place] % (Auto) (0.0-7.3) % Eos % (Auto) (0.0-4.3) % Baso % (Auto) (0.0-1.8) % Lymph # (1.2-5.4) K/mm3 [place] # (0.0-0.8) K/mm3 Eos # (0.0-0.4) K/mm3 Baso # (0.0-0.1) K/mm3 Seg Neutrophils % (40.0-70.0) % Seg Neutrophils # (1.8-7.7) K/mm3 PT (12.2-14.9) Sec. INR (0.87-1.13) APTT (24.2-36.6) Sec. Sodium (137-145) mmol/L Potassium (3.6-5.0) mmol/L Chloride (98-107) mmol/L Carbon Dioxide (22-30) mmol/L Anion Gap mmol/L BUN (7-17) mg/dL Creatinine (0.7-1.2) mg/dL Estimated GFR ml/min BUN/Creatinine Ratio % Glucose (65-100) mg/dL POC Glucose 78 88 (70-105) Calcium (8.4-10.2) mg/dL Total Bilirubin (0.1-1.2) mg/dL AST (5-40) units/L ALT (7-56) units/L Alkaline Phosphatase (35-129) units/L Troponin T < 0.010 (0.00-0.029) ng/mL Total Protein (6.3-8.2) g/dL Albumin (3.9-5) g/dL Albumin/Globulin Ratio % TSH (0.270-4.200) mlU/mL Plasma/Serum Alcohol (0-0.07) % - EKG Data -: EKG Interpreted by Ri EKG shows normal: sinus rhythm Rate: bradycardia Interpretation: no acute changes - Radiology Data Radiology results: report reviewed Referring Physician: GAL SAVAGE Patient Name: BEATRIZ BROWN Date of : 1940 Sex: Female Report Date: 2018-03-14 Report Status: Finalized Findings [address] [address] Cat Scan Report Signed Patient: BEATRIZ BROWN MR#: [id number] : 1940 Acct:[id number] Age/Sex: 78 / F ADM Date: 03/14/18 Loc: ED Attending Dr: Ordering Physician: GAL SAVAGE MD Date of Service: 03/14/18 Procedure(s): CT head/brain wo con Accession Number(s): [id number] cc: GAL SAVAGE MD FINAL REPORT PROCEDURE: CT HEAD/BRAIN WO CON TECHNIQUE: Computerized tomography of the head was performed without contrast material. HISTORY: transient ams, hx of cva left weakness, dementia COMPARISON: 01/17/2018 FINDINGS: There are diffuse involutional changes in the right middle cerebral artery territory, unchanged compared to the prior study. There is no CT evidence of acute intracranial hemorrhage, mass, hydrocephalus, or acute territorial infarction. The intracranial arteries are symmetric in density. Calvarium is intact. Visualized paranasal sinuses and mastoids are aerated. IMPRESSION: No CT evidence of acute intracranial abnormality Transcribed By: [facility] Dictated By: YANICK AGARWAL M.D. Electronically Authenticated By: YANICK AGARWAL M.D. Signed Date/Time: 03/14/18 184 Referring Physician: LEEROY BREWER Patient Name: BEATRIZ BROWN Date of : 1940 Sex: Female Report Date: 2018-03-14 Report Status: Finalized Findings [address] [address] XRay Report Signed Patient: BEATRIZ BROWN MR#: [id number] : 1940 Acct:[id number] Age/Sex: 78 / F ADM Date: 03/14/18 Loc: ED Attending Dr: Ordering Physician: LEEROY BREWER Date of Service: 03/14/18 Procedure(s): XR chest 1V ap Accession Number(s): [id number] cc: LEEROY Chan Time In Minutes: FINAL REPORT PROCEDURE: XR CHEST 1V AP TECHNIQUE: Chest radiograph anteroposterior view. CPT 55807 HISTORY: AMS COMPARISON: No prior studies are available for comparison. FINDINGS: Heart: Normal. Mediastinum/Vessels: Normal. Lungs/Pleural space: Normal. Bony thorax: No acute osseous abnormality. Life support devices: None. IMPRESSION: No acute cardiopulmonary abnormality. Transcribed By: [facility] Dictated By: ANSELMO PURVIS MD Electronically Authenticated By: ANSELMO PURVIS MD Signed Date/Time: 03/14/182322 DD/ 22 TD/TT: 03/14/182322 DD/ 40 TD/TT: 03/14/181840 - Medical Decision Making Ms Brown is 78 years old female with history of multiple sclerosis stroke with left-sided weakness, dementia and bradycardia. Patient was sent from Dr. Greco office as the patient was unresponsive in his office. Patient was found to have a heart rate of 40 and she was told that her blood sugar was in the 70s. Patient is alert but disoriented in place and time but not person. Patient denied any new weakness. History is limited because of the patient condition and dementia. Patient remained asymptomatic in the ER. With stable vital signs except for bradycardia. CT brain is negative for acute finding. I discussed the patient is Dr. Bhatt advised to admit the patient to the hospital and he will follow up with the patient. I discussed the patient with Dr Jackson, agreed to admit the patient to medical service. Critical Care Time: Yes Critical care time in (mins) excluding proc time.: 30 Critical care attestation.: If time is entered above; I have spent that time in minutes in the direct care of this critically ill patient, excluding procedure time. ED Disposition Clinical Impression: Symptomatic bradycardia, Altered mental status Disposition: OP ADMIT IP TO THIS HOSP Is pt being admited?: Yes Condition: Stable Referrals: PRIMARY CARE, [Primary Care Provider] - 3-5 Days
--- NOTE | 2018-03-14 23:24 | XRay Report ---
FINAL REPORT PROCEDURE: XR CHEST 1V AP TECHNIQUE: Chest radiograph anteroposterior view. CPT 01559 HISTORY: AMS COMPARISON: No prior studies are available for comparison. FINDINGS: Heart: Normal. Mediastinum/Vessels: Normal. Lungs/Pleural space: Normal. Bony thorax: No acute osseous abnormality. Life support devices: None. IMPRESSION: No acute cardiopulmonary abnormality.
[2018-03-15] MEDS ORDERED: D50W (25GM) Syringe IV PRN (00:04)
[2018-03-15] MEDS ORDERED: TYLENOL PO PRN (00:06)
[2018-03-15] MEDS ORDERED: ZOFRAN IV PRN (00:09)
[2018-03-15] MEDS ORDERED: NORCO 5/325 PO PRN (00:10)
[2018-03-15 01:02] LABS: Creatine Kinase MB < 1.0 ng/mL (0.0-4.0)
[2018-03-15] MEDS ORDERED: K-DUR PO ONE ×2 (04:00→17:45)
--- NOTE | 2018-03-15 05:31 | History and Physical Report ---
CHIEF COMPLAINT: Change in mental status. HISTORY OF PRESENT ILLNESS: The patient is an 78-year-old female, sent to the Emergency Room from doctor's office after she presented with decreased responsiveness and the patient's heart rate was found to be as low as 40 with also blood sugar in the 70s and the patient was disoriented and sent over for evaluation. In the Emergency Room, there was no history of chest pain, no history of shortness of breath, fever, chills, nausea or vomiting. PAST MEDICAL HISTORY: Pertinent for hypertension, cerebrovascular accident, diabetes mellitus, dementia, and high cholesterol. PAST SURGICAL HISTORY: Pertinent for ankle surgery and ear surgery. FAMILY HISTORY: Noncontributory. SOCIAL HISTORY: The patient does not smoke, does not drink alcohol and does not use illicit drugs. MEDICATIONS: The patient is on the following medications: Lyrica 100 mg by mouth twice daily, hydrochlorothiazide 25 mg daily, [place] 5/325 mg 1 by mouth every 6 hours as needed for pain, aspirin 81 mg daily, atorvastatin 20 mg by mouth daily, hydrochlorothiazide 25 mg by mouth daily, and memantine hydrochloride 10 mg by mouth twice daily. ALLERGIES: THE PATIENT IS ALLERGIC TO HONEY BEE STING. REVIEW OF SYSTEMS: CONSTITUTIONAL: There is no fever, no chills, no diaphoresis. HEENT: There is no headache or sore throat. CARDIOVASCULAR SYSTEM: There is no chest pain or orthopnea. RESPIRATORY SYSTEM: There is no shortness of breath or cough. GASTROINTESTINAL SYSTEM: There is no nausea, no vomiting, no abdominal pain, diarrhea or constipation. NEUROLOGICAL SYSTEM: Decreased responsiveness noted. No numbness. MUSCULOSKELETAL SYSTEM: There is no joint pain or swelling. DERMATOLOGICAL SYSTEM: There is no skin rash or itching. GENITOURINARY SYSTEM: There is no dysuria, hematuria or flank pain. Rest of system review is normal. PHYSICAL EXAMINATION: GENERAL: At the time of exam, the patient was found to be alert, oriented to person, weak looking, and not in acute distress. VITAL SIGNS: The patient's vital signs at the initial time of presentation showed temperature of 97.4 degrees Fahrenheit, pulse of 58, respirations 20, and blood pressure 156/72, and O2 sat of 100% on room air. HEENT: Showed pupils to be equal, round, reactive to light and accommodating. Extraocular muscles are intact. NECK: Supple with no JVD or carotid bruit. CARDIOVASCULAR SYSTEM: Showed normal first and second heart sounds with no gallops or murmurs. RESPIRATORY SYSTEM: Showed good air entry on both sides of the lungs with no abnormal breath sounds. GASTROINTESTINAL SYSTEM: Showed abdomen to be full, soft, and nontender with no organomegaly or rigidity. NEUROLOGICAL SYSTEM: Showed no focal deficit. MUSCULOSKELETAL SYSTEM: Showed no joint swelling or tenderness. DERMATOLOGICAL SYSTEM: Showed no skin rash. GENITOURINARY SYSTEM: Showing no costovertebral angle tenderness. PERTINENT LABORATORY AND IMAGING STUDIES: The patient had a CT of the head with no contrast done that came back showing no abnormality. The patient also had chest x-ray done that shows no acute cardiopulmonary lesion. The patient's lab results showed CBC with normal results and coagulation studies showed slight increase in PTT of 37.3. The patient's chemistry showed slight decrease in potassium level of 3.4 with the rest of the chemistry being unremarkable. Cardiac enzymes were unremarkable. The patient had alcohol level done that came back unremarkable. TSH level was normal. DIAGNOSES: 1. Symptomatic bradycardia. 2. Altered mental status. PLAN: 1. The patient will be admitted to telemetry. 2. The patient will have complete echocardiogram done this morning. 3. The patient will continue Cardiology consult with Dr. Bhatt requested by the Emergency Room physician. 4. The patient's diet will be consisting carbohydrate, low sodium diet. 5. The patient will have Accu-Chek before meals and at bedtime, followed by low-dose sliding scale using regular insulin coverage. 6. The patient will be on p.r.n. medications like Tylenol 650 mg by mouth every 4 hours for fever and headache and Zofran 4 mg IV every 8 hours for nausea and vomiting. 7. The patient will have potassium chloride treatment by mouth 20 mEq x 1 dose. 8. The patient will be on oxygen by nasal cannula at 2 liter per minute and will be on her home medications as shown in the medication reconciliation section. JOB# [id number] OCN/NTS
[2018-03-15] MEDS: HumuLIN R SUB-Q SCH ×3 (07:30→16:30)
[2018-03-15 09:23] LABS: Creatine Kinase MB < 1.0 ng/mL (0.0-4.0)
--- NOTE | 2018-03-15 09:37 | Progress Note ---
Assessment and Plan Assessment and plan: Patient is 78 yo woman with history Dementia, hypertension, CVA with left sided deficits, DM and dyslipidemia who was sent from Dr. Greco's Cardiology office due to AMS/disorientated. Patient was found to have a heart rate of 40 and she was told that her blood sugar was in the 70s. * pCXR negative for acute finding * CT head negative for acute findings -Symptomatic bradycardia: review medication list, continue tele monitoring, Cardiology to evaluate, ECHO pending -Acute toxic metabolic encephalopathy with hypoglycemia and bradycardia -Hypoglycemia: treat with dextose, monitor with accu-checks -DM: use SSI History Interval history: Patient was seen and examined. Follow-up on current diagnosis. Overnight uneventful. Patient denies any chest pain, shortness breath, nausea/vomiting or severe headaches. Imaging, nursing note, chart, labs and old chart reviewed. Discussed with patient Hospitalist Physical - Physical exam Narrative exam: GEN: WDWN, NAD, Awake, Alert, Orientated HEENT: NCAT, EOMI, PERRL, OP Clear NECK: supple, no adenopathy, no thyromegaly, no JVD CVS/HEART: RRR, normal S1S2, pulses present bilaterally CHEST/LUNGS: CTA B, Symmetrical chest expansion, good air entry bilaterally GI/Abdomen: soft, NTND, good bowel sounds, no guarding or rebound /Bladder: no suprapubic tenderness, no CVA or paraspinal tenderness EXT/Skin: no c/c/e, no obvious rash MSK: FROM x 4 Neuro: CN 2-12 grossly intact, no new focal deficits Psych: calm - Constitutional Vitals: Temp Pulse Resp BP Pulse Ox 97.9 F 50 L 20 126/43 96 03/15/18 08:56 03/15/18 08:56 03/15/18 08:56 03/15/18 08:56 03/15/18 08:56 Results - Labs CBC & Chem 7: 03/14/18 17:36 03/14/18 17:36 Labs: Laboratory Last Values WBC 4.5 K/mm3 (4.5-11.0) 03/14/18 17:36 RBC 4.46 M/mm3 (3.65-5.03) 03/14/18 17:36 Hgb 12.8 gm/dl (10.1-14.3) 03/14/18 17:36 Hct 39.1 % (30.3-42.9) 03/14/18 17:36 MCV 88 fl (79-97) 03/14/18 17:36 MCH 29 pg (28-32) 03/14/18 17:36 MCHC 33 % (30-34) 03/14/18 17:36 RDW 18.8 % (13.2-15.2) H 03/14/18 17:36 Plt Count 234 K/mm3 (140-440) 03/14/18 17:36 Lymph % (Auto) 27.4 % (13.4-35.0) 03/14/18 17:36 [place] % (Auto) 7.0 % (0.0-7.3) 03/14/18 17:36 Eos % (Auto) 2.7 % (0.0-4.3) 03/14/18 17:36 Baso % (Auto) 0.6 % (0.0-1.8) 03/14/18 17:36 Lymph # 1.2 K/mm3 (1.2-5.4) 03/14/18 17:36 [place] # 0.3 K/mm3 (0.0-0.8) 03/14/18 17:36 Eos # 0.1 K/mm3 (0.0-0.4) 03/14/18 17:36 Baso # 0.0 K/mm3 (0.0-0.1) 03/14/18 17:36 Seg Neutrophils % 61.6 % (40.0-70.0) 03/14/18 17:36 Seg Neutrophils # 2.8 K/mm3 (1.8-7.7) 03/14/18 17:36 PT 14.6 Sec. (12.2-14.9) 03/14/18 17:36 INR 1.09 (0.87-1.13) 03/14/18 17:36 APTT 37.3 Sec. (24.2-36.6) H 03/14/18 17:36 Sodium 139 mmol/L (137-145) 03/14/18 17:36 Potassium 3.4 mmol/L (3.6-5.0) L 03/14/18 17:36 Chloride 98.9 mmol/L (98-107) 03/14/18 17:36 Carbon Dioxide 18 mmol/L (22-30) L 03/14/18 17:36 Anion Gap 26 mmol/L 03/14/18 17:36 BUN 8 mg/dL (7-17) 03/14/18 17:36 Creatinine 0.8 mg/dL (0.7-1.2) 03/14/18 17:36 Estimated GFR > 60 ml/min 03/14/18 17:36 BUN/Creatinine Ratio 10 % 03/14/18 17:36 Glucose 96 mg/dL (65-100) 03/14/18 17:36 POC Glucose 92 (70-105) 03/15/18 06:29 Calcium 9.4 mg/dL (8.4-10.2) 03/14/18 17:36 Total Bilirubin 0.50 mg/dL (0.1-1.2) 03/14/18 17:36 AST 33 units/L (5-40) 03/14/18 17:36 ALT 26 units/L (7-56) 03/14/18 17:36 Alkaline Phosphatase 70 units/L (35-129) 03/14/18 17:36 Total Creatine Kinase 87 units/L (30-135) 03/15/18 08:12 CK-MB (CK-2) < 1.0 ng/mL (0.0-4.0) 03/15/18 08:12 CK-MB (CK-2) Rel Index 1.1 (0-4) 03/15/18 08:12 Troponin T < 0.010 ng/mL (0.00-0.029) 03/15/18 08:12 Total Protein 7.1 g/dL (6.3-8.2) 03/14/18 17:36 Albumin 4.3 g/dL (3.9-5) 03/14/18 17:36 Albumin/Globulin Ratio 1.5 % 03/14/18 17:36 TSH 2.220 mlU/mL (0.270-4.200) 03/14/18 17:36 Plasma/Serum Alcohol < 0.01 % (0-0.07) 03/14/18 17:36
[2018-03-15] MEDS: HEPARIN SUB-Q SCH ×2 (10:00→21:16)
[2018-03-15] MEDS: NAMENDA PO SCH ×2 (10:00→21:16)
[2018-03-15] MEDS: LYRICA PO SCH ×4 (10:00→21:16)
--- NOTE | 2018-03-15 11:55 | Consultation ---
History of Present Illness Consult date: 03/15/18 Requesting physician: LEEROY BREWER Consult reason: bradycardia History of present illness: The patient is an 78-year-old female with a past medical history significant for HTN, HLP, DM, PVD, CVI, TIAs, advanced dementia, occlusion of right internal carotid artery, diastolic dysfunction, sinus bradycardia. She is followed in our office by Dr. Maher. The pt has dementia and does not recall why she is hospitalized and thus the HPI is obtained per her at bedside. Per pt's , the pt presented to our office yesterday with some generalized weakness and decreased responsiveness. The pt's states that the pt was "acting sleepy" for a few hours prior to presenting to our office. She was referred to ED for further eval/management. Pt denies any cardiac complaints, including chest pain, SOB, palpitations, n/v, diaphoresis, dizziness or syncope. Of note, pt's at bedside states that pt's dementia has been worsening over the past few months. Pt was recently initiated on Namenda per her neurologist. Pt was undergoing echocardiogram this AM when she became restless and agitated and was attempting to get out of the stretcher. Code security was called and she was safely returned back to her room. Echo done 01/2017 showed EF 55-60%, impaired relaxation. PET MPI done 04/2017 was negative for significant ischemia, normal LVEF. Past History Past Medical History: diabetes, hypertension, hyperlipidemia, other (TIAs; dementia; occlusion of right internal carotid artery) Social history: , lives with family. denies: smoking, alcohol abuse, prescription drug abuse Medications and Allergies Allergies Allergy/AdvReac Type Severity Reaction Status Date / Time bee venom protein (honey bee) Allergy Shortness Verified 01/17/18 00:26 of Breath Home Medications Medication Instructions Recorded Confirmed Last Taken Type Pregabalin [Lyrica] 1 tab PO BID 03/21/16 03/14/18 01/16/18 History hydroCHLOROthiazide [HCTZ] 25 mg PO DAILY 03/21/16 03/14/18 01/16/18 History HYDROcodone/APAP 5-325 [[place] 1 each PO Q6HR PRN #20 tablet 03/22/16 03/14/18 Unknown Rx 5-325 mg TAB] Aspirin 81 mg PO DAILY 01/17/18 03/14/18 Unknown History AtorvaSTATin 20 mg PO DAILY 01/17/18 03/14/18 01/16/18 History Hydrochlorothiazide 25 mg PO DAILY 01/17/18 03/14/18 01/16/18 History Lyrica 100 mg PO BID 01/17/18 03/14/18 01/16/18 History Memantine HCl 10 mg PO BID 01/17/18 03/14/18 01/16/18 History Active Meds: Active Medications Acetaminophen (Tylenol) 650 mg PO Q4H PRN PRN Reason: Fever >101 Acetaminophen/Hydrocodone Bitart ([place] 5/325) 1 each PO Q6H PRN PRN Reason: Pain, Moderate (4-6) Aspirin (Halfprin Ec) 81 mg PO DAILY [facility] Atorvastatin Calcium (Lipitor) 20 mg PO DAILY [facility] Dextrose (D50w (25gm) Syringe) 50 ml IV PRN PRN PRN Reason: Hypoglycemia Heparin Sodium (Porcine) (Heparin) 5,000 unit SUB-Q Q12HR [facility] Hydrochlorothiazide (Hctz) 25 mg PO DAILY [facility] Insulin Human Regular (Humulin R) 0 units SUB-Q AC CARRIE; Protocol Insulin Human Regular (Humulin R) 0 units SUB-Q QHS CARRIE; Protocol Memantine (Namenda) 10 mg PO BID [facility] Ondansetron HCl (Zofran) 4 mg IV Q8H PRN PRN Reason: Nausea And Vomiting Pregabalin (Lyrica) 75 mg PO BID [facility] Pregabalin (Lyrica) 25 mg PO BID [facility] Review of Systems Constitutional: weakness (generalized ), no weight loss, no weight gain, no fever, no chills, no sweats Ears, nose, mouth and throat: no ear pain, no nose pain, no sinus pressure, no sinus pain Cardiovascular: no chest pain, no orthopnea, no palpitations, no rapid/ irregular heart beat, no edema, no syncope, no lightheadedness, no shortness of breath, no dyspnea on exertion Respiratory: no cough, no shortness of breath, no dyspnea on exertion, no congestion, no wheezing, no pain on inspiration Gastrointestinal: no abdominal pain, no nausea, no vomiting, no diarrhea, no constipation, no change in bowel habits Genitourinary Female: no pelvic pain, no flank pain, no dysuria, no urinary frequency, no urgency Musculoskeletal: no neck stiffness, no neck pain Integumentary: no rash, no pruritis, no redness, no sores, no wounds Neurological: weakness (generalized ), memory loss (dementia), other (decreased responsiveness), no head injury, no paralysis, no parathesias, no numbness, no tingling, no seizures, no syncope Psychiatric: memory loss (dementia), no anxiety Endocrine: no cold intolerance, no heat intolerance Hematologic/Lymphatic: no easy bruising, no easy bleeding Allergic/Immunologic: no urticaria, no wheezing Physical Examination Vital Signs Temp Pulse Resp BP Pulse Ox 97.4 F L 58 L 20 156/72 100 03/14/18 17:02 03/14/18 17:02 03/14/18 17:02 03/14/18 17:02 03/14/18 17:02 General appearance: no acute distress HEENT: Positive: PERRL, Normocephaly, Mucus Membranes Moist Neck: Positive: neck supple, trachea midline Cardiac: Positive: Regular Rhythm, S1/S2 Lungs: Positive: clear to auscultation Neuro: Positive: Grossly Intact Abdomen: Positive: Soft. Negative: Tender Skin: Positive: Clear. Negative: Rash, Wound Musculoskeletal: No Pain Extremities: Absent: edema Results 03/14/18 17:36 03/14/18 17:36 Cardiac Enzymes 03/14/18 03/15/18 03/15/18 Range/Units 17:36 00:13 08:12 AST 33 (5-40) units/L CK-MB (CK-2) < 1.0 < 1.0 (0.0-4.0) ng/mL Coagulation 03/14/18 Range/Units 17:36 PT 14.6 (12.2-14.9) Sec. INR 1.09 (0.87-1.13) APTT 37.3 H (24.2-36.6) Sec. CBC 03/14/18 Range/Units 17:36 WBC 4.5 (4.5-11.0) K/mm3 RBC 4.46 (3.65-5.03) M/mm3 Hgb 12.8 (10.1-14.3) gm/dl Hct 39.1 (30.3-42.9) % Plt Count 234 (140-440) K/mm3 Lymph # 1.2 (1.2-5.4) K/mm3 [place] # 0.3 (0.0-0.8) K/mm3 Eos # 0.1 (0.0-0.4) K/mm3 Baso # 0.0 (0.0-0.1) K/mm3 Comprehensive Metabolic Panel 03/14/18 Range/Units 17:36 Sodium 139 (137-145) mmol/L Potassium 3.4 L (3.6-5.0) mmol/L Chloride 98.9 (98-107) mmol/L Carbon Dioxide 18 L (22-30) mmol/L BUN 8 (7-17) mg/dL Creatinine 0.8 (0.7-1.2) mg/dL Glucose 96 (65-100) mg/dL Calcium 9.4 (8.4-10.2) mg/dL AST 33 (5-40) units/L ALT 26 (7-56) units/L Alkaline Phosphatase 70 (35-129) units/L Total Protein 7.1 (6.3-8.2) g/dL Albumin 4.3 (3.9-5) g/dL - Imaging and Cardiology Echo: pending, report reviewed (occlusion of right internal carotid artery) EKG: report reviewed, image reviewed EKG interpretations - Telemetry EKG Rhythm: Sinus Bradycardia - EKG Sinus rhythms and dysrhythmias: sinus bradycardia Assessment and Plan Head CT with NAF. Thyroid profile WNL. Tele reviewed - pt in sinus bradycardia with HR 40s - 60s, no pauses or bradyarrhythmias noted. BPs WNL. Await echo. The patient has been seen in conjunction with Dr. Bhatt who agrees with the assessment and plan of care. - Patient Problems (1) Chronic sinus bradycardia Current Visit: Yes Status: Chronic (2) Altered mental status Current Visit: Yes Status: Acute (3) Dementia Current Visit: Yes Status: Chronic (4) HTN (hypertension) Current Visit: Yes Status: Chronic (5) Diabetes Current Visit: Yes Status: Chronic (6) Occlusion of right internal carotid artery Current Visit: Yes Status: Chronic (7) History of TIAs Current Visit: Yes Status: Chronic
[2018-03-15] MEDS: HCTZ PO SCH (17:43)
[2018-03-15] MEDS: HALFPRIN EC PO SCH (17:43)
[2018-03-15 19:05] LABS: Bilirubin,Urine NEG (Negative); Blood,Urine NEG (Negative); Color,Urine Yellow (Yellow); Protein,Urine <15 mg/dL mg/dL (Negative)
[2018-03-15 19:13] LABS: Amphetamine Screen,Urine PRESUMPTIVE NEGATIVE; Benzodiazepines Screen,Urine PRESUMPTIVE NEGATIVE; Cannabinoid Screen,Urine PRESUMPTIVE NEGATIVE; Cocaine Screen,Urine PRESUMPTIVE NEGATIVE; Methadone Screen,Urine PRESUMPTIVE NEGATIVE; Opiate Screen,Urine PRESUMPTIVE NEGATIVE
[2018-03-15] MEDS ORDERED: HumuLIN R SUB-Q SCH (22:00)
[2018-03-16] MEDS: HumuLIN R SUB-Q SCH ×2 (07:30→18:03)
--- NOTE | 2018-03-16 09:42 | Progress Note ---
Assessment and Plan Assessment and plan: Patient is 78 yo woman with a history of Dementia, hypertension, CVA with left sided deficits, and dyslipidemia who was sent from Dr. Greco's ([employer] Consultant) office due to AMS/disorientation. Patient was found to have a heart rate of 40 and she was told that her blood sugar was 64. * pCXR negative for acute finding * CT head negative for acute findings -Symptomatic bradycardia: reviewed medication list, continue tele monitoring, Cardiology managing and had cleared for discharge, 2D ECHO evidence of atrial septal aneurysm, trace MR, trace TR, est EF 50-55%, abnormal left ventricular diastolic filling, c/w impaired relaxation -Acute toxic metabolic encephalopathy with hypoglycemia and bradycardia -Hypoglycemia, mild, no history of DM per daughters: treated with dextose, monitored with accu-checks,stable -DM: use SSI d/w daughters Page and Keena. They are concerned the Dementia is getting worse. She consistently tries to wander and difficult to re-direct. ?SNF placement History Interval history: Patient was seen and examined. Follow-up on current diagnosis. Overnight uneventful. Patient denies any chest pain, shortness breath, nausea/vomiting or severe headaches. Imaging, nursing note, chart, labs and old chart reviewed. Discussed with patient Hospitalist Physical - Physical exam Narrative exam: GEN: WDWN, NAD, Awake, Alert, Orientated HEENT: NCAT, EOMI, PERRL, OP Clear NECK: supple, no adenopathy, no thyromegaly, no JVD CVS/HEART: RRR, normal S1S2, pulses present bilaterally CHEST/LUNGS: CTA B, Symmetrical chest expansion, good air entry bilaterally GI/Abdomen: soft, NTND, good bowel sounds, no guarding or rebound /Bladder: no suprapubic tenderness, no CVA or paraspinal tenderness EXT/Skin: no c/c/e, no obvious rash MSK: FROM x 4 Neuro: CN 2-12 grossly intact, no new focal deficits Psych: calm - Constitutional Vitals: Temp Pulse Resp BP Pulse Ox 98.0 F 60 20 138/59 99 03/16/18 08:43 03/16/18 05:11 03/16/18 08:43 03/16/18 08:43 03/16/18 08:35 General appearance: Present: no acute distress Results - Labs CBC & Chem 7: 03/14/18 17:36 03/14/18 17:36 Labs: Laboratory Last Values WBC 4.5 K/mm3 (4.5-11.0) 03/14/18 17:36 RBC 4.46 M/mm3 (3.65-5.03) 03/14/18 17:36 Hgb 12.8 gm/dl (10.1-14.3) 03/14/18 17:36 Hct 39.1 % (30.3-42.9) 03/14/18 17:36 MCV 88 fl (79-97) 03/14/18 17:36 MCH 29 pg (28-32) 03/14/18 17:36 MCHC 33 % (30-34) 03/14/18 17:36 RDW 18.8 % (13.2-15.2) H 03/14/18 17:36 Plt Count 234 K/mm3 (140-440) 03/14/18 17:36 Lymph % (Auto) 27.4 % (13.4-35.0) 03/14/18 17:36 [place] % (Auto) 7.0 % (0.0-7.3) 03/14/18 17:36 Eos % (Auto) 2.7 % (0.0-4.3) 03/14/18 17:36 Baso % (Auto) 0.6 % (0.0-1.8) 03/14/18 17:36 Lymph # 1.2 K/mm3 (1.2-5.4) 03/14/18 17:36 [place] # 0.3 K/mm3 (0.0-0.8) 03/14/18 17:36 Eos # 0.1 K/mm3 (0.0-0.4) 03/14/18 17:36 Baso # 0.0 K/mm3 (0.0-0.1) 03/14/18 17:36 Seg Neutrophils % 61.6 % (40.0-70.0) 03/14/18 17:36 Seg Neutrophils # 2.8 K/mm3 (1.8-7.7) 03/14/18 17:36 PT 14.6 Sec. (12.2-14.9) 03/14/18 17:36 INR 1.09 (0.87-1.13) 03/14/18 17:36 APTT 37.3 Sec. (24.2-36.6) H 03/14/18 17:36 Sodium 139 mmol/L (137-145) 03/14/18 17:36 Potassium 3.4 mmol/L (3.6-5.0) L 03/14/18 17:36 Chloride 98.9 mmol/L (98-107) 03/14/18 17:36 Carbon Dioxide 18 mmol/L (22-30) L 03/14/18 17:36 Anion Gap 26 mmol/L 03/14/18 17:36 BUN 8 mg/dL (7-17) 03/14/18 17:36 Creatinine 0.8 mg/dL (0.7-1.2) 03/14/18 17:36 Estimated GFR > 60 ml/min 03/14/18 17:36 BUN/Creatinine Ratio 10 % 03/14/18 17:36 Glucose 96 mg/dL (65-100) 03/14/18 17:36 POC Glucose 97 (70-105) 03/16/18 05:12 Calcium 9.4 mg/dL (8.4-10.2) 03/14/18 17:36 Total Bilirubin 0.50 mg/dL (0.1-1.2) 03/14/18 17:36 AST 33 units/L (5-40) 03/14/18 17:36 ALT 26 units/L (7-56) 03/14/18 17:36 Alkaline Phosphatase 70 units/L (35-129) 03/14/18 17:36 Total Creatine Kinase 87 units/L (30-135) 03/15/18 08:12 CK-MB (CK-2) < 1.0 ng/mL (0.0-4.0) 03/15/18 08:12 CK-MB (CK-2) Rel Index 1.1 (0-4) 03/15/18 08:12 Troponin T < 0.010 ng/mL (0.00-0.029) 03/15/18 08:12 Total Protein 7.1 g/dL (6.3-8.2) 03/14/18 17:36 Albumin 4.3 g/dL (3.9-5) 03/14/18 17:36 Albumin/Globulin Ratio 1.5 % 03/14/18 17:36 TSH 2.220 mlU/mL (0.270-4.200) 03/14/18 17:36 Urine Color Yellow (Yellow) 03/15/18 18:39 Urine Turbidity Slightly-cloudy (Clear) 03/15/18 18:39 Urine pH 8.0 (5.0-7.0) H 03/15/18 18:39 Ur Specific [place] 1.010 (1.003-1.030) 03/15/18 18:39 Urine Protein <15 mg/dl mg/dL (Negative) 03/15/18 18:39 Urine Glucose (UA) Neg mg/dL (Negative) 03/15/18 18:39 Urine Ketones Neg mg/dL (Negative) 03/15/18 18:39 Urine Blood Neg (Negative) 03/15/18 18:39 Urine Nitrite Neg (Negative) 03/15/18 18:39 Urine Bilirubin Neg (Negative) 03/15/18 18:39 Urine Urobilinogen 2.0 mg/dL (<2.0) 03/15/18 18:39 Ur Leukocyte Esterase Lg (Negative) 03/15/18 18:39 Urine WBC (Auto) 0.0 /HPF (0.0-6.0) 03/15/18 18:39 Urine RBC (Auto) 5.0 /HPF (0.0-6.0) 03/15/18 18:39 U Epithel Cells (Auto) < 1.0 /HPF (0-13.0) 03/15/18 18:39 Urine Opiates Screen Presumptive negative 03/15/18 17:09 Urine Methadone Screen Presumptive negative 03/15/18 17:09 Ur Barbiturates Screen Presumptive negative 03/15/18 17:09 Ur Phencyclidine Scrn Presumptive negative 03/15/18 17:09 Ur Amphetamines Screen Presumptive negative 03/15/18 17:09 U Benzodiazepines Scrn Presumptive negative 03/15/18 17:09 Urine Cocaine Screen Presumptive negative 03/15/18 17:09 U Marijuana (THC) Screen Presumptive negative 03/15/18 17:09 Drugs of Abuse Note Disclamer 03/15/18 17:09 Plasma/Serum Alcohol < 0.01 % (0-0.07) 03/14/18 17:36
[2018-03-16] MEDS: LYRICA PO SCH ×2 (10:00)
[2018-03-16] MEDS: NAMENDA PO SCH (10:00)
[2018-03-16] MEDS: HALFPRIN EC PO SCH (10:00)
[2018-03-16] MEDS: HCTZ PO SCH (10:00)
[2018-03-16] MEDS: HEPARIN SUB-Q SCH (10:00)
--- NOTE | 2018-03-16 10:59 | Progress Note ---
Assessment and Plan Echo reviewed - EF 50-55%, evidence of atrial septal aneurysm, impaired relaxation. Head CT with NAF. Thyroid profile WNL. Tele reviewed - pt in sinus bradycardia with HR 40s - 60s, no pauses or bradyarrhythmias noted since admission. BPs WNL. Currently stable cardiac status. Pt may discharge home from cardiology standpoint. Recommend follow up in our office with Dr. Maher within 1-2 weeks of hospital discharge ([phone]). The patient has been seen in conjunction with Dr. Bhatt who agrees with the assessment and plan of care. - Patient Problems (1) Chronic sinus bradycardia Current Visit: Yes Status: Chronic (2) Altered mental status Current Visit: Yes Status: Acute (3) Dementia Current Visit: Yes Status: Chronic (4) HTN (hypertension) Current Visit: Yes Status: Chronic (5) Diabetes Current Visit: Yes Status: Chronic (6) Occlusion of right internal carotid artery Current Visit: Yes Status: Chronic (7) History of TIAs Current Visit: Yes Status: Chronic Subjective Date of service: 03/16/18 Principal diagnosis: SB Interval history: pt resting comfortably in bed, no current cardiac complaints. no family at bedside. tele reviewed - pt remains in SB with no pauses or bradyarrhythmias noted overnight. Objective Last Vital Signs Temp 98.0 F 03/16/18 08:43 Pulse 60 03/16/18 05:11 Resp 20 03/16/18 08:43 BP 138/59 03/16/18 08:43 Pulse Ox 99 03/16/18 08:35 - Physical Examination General: No Apparent Distress HEENT: Positive: PERRL, Normocephaly, Mucus Membranes Moist Neck: Positive: neck supple, trachea midline Cardiac: Positive: Regular Rhythm, S1/S2 Lungs: Positive: clear to auscultation Neuro: Positive: Grossly Intact Abdomen: Positive: Soft. Negative: Tender Skin: Positive: Clear. Negative: Rash, Wound Musculoskeletal: No Pain Extremities: Absent: edema - Imaging and Cardiology EKG: report reviewed, image reviewed Echo: pending, report reviewed (occlusion of right internal carotid artery) - EKG Sinus rhythms and dysrhythmias: sinus bradycardia
[2018-03-16 12:56] VITALS: BP 139/51
--- NOTE | 2018-03-16 13:55 | Discharge Summary ---
Providers - Providers Date of Admission: 03/14/18 23:56 Date of discharge: 03/16/18 Attending physician: LINETTE MULLER 03/14/18 22:29 Consult to Physician [CONS] Stat Comment: Dr. Lemus spoke with Dr. Hager @ [phone] Consulting Provider: DORCAS HAGER Physician Instructions: Reason For Exam: symptomatic bradycardia Primary care physician: FRUIT GROWER Hospitalization Condition: Stable Hospital course: Patient is 78 yo woman with a history of Dementia, hypertension, CVA with left sided deficits, and dyslipidemia who was sent from Dr. Greco's ([facility]) office due to AMS/disorientation. Patient was found to have a heart rate of 40 and she was told that her blood sugar was 64. * pCXR negative for acute finding * CT head negative for acute findings -Symptomatic bradycardia: reviewed medication list, continue tele monitoring, Cardiology managing and had cleared for discharge, 2D ECHO evidence of atrial septal aneurysm, trace MR, trace TR, est EF 50-55%, abnormal left ventricular diastolic filling, c/w impaired relaxation -Acute toxic metabolic encephalopathy with hypoglycemia and bradycardia -Hypoglycemia, mild, no history of DM per daughters: treated with dextose, monitored with accu-checks,stable -DM: use SSI d/w daughters Page and Keena. They are concerned the Dementia is getting worse. She consistently tries to wander and difficult to re-direct. ?SNF placement Disposition: [id number] HOME [facility] Time spent for discharge: 36 minutes Core Measure Documentation - Palliative Care Palliative Care/ Comfort Measures: Not Applicable - Core Measures Any of the following diagnoses?: none - VTE Discharge Requirements Deep Vein Thrombosis/Pulmonary Embolism Present on Admission: No Has pt received <5 days of overlap therapy or INR<2.0: No Anticoagulant overlap therapy prescribed at discharge: No Contraindication No Overlap Therapy order at DC: Not Indicated Exam - Physical Exam Narrative exam: GEN: WDWN, NAD, Awake, Alert, Orientated HEENT: NCAT, EOMI, PERRL, OP Clear NECK: supple, no adenopathy, no thyromegaly, no JVD CVS/HEART: RRR, normal S1S2, pulses present bilaterally CHEST/LUNGS: CTA B, Symmetrical chest expansion, good air entry bilaterally GI/Abdomen: soft, NTND, good bowel sounds, no guarding or rebound /Bladder: no suprapubic tenderness, no CVA or paraspinal tenderness EXT/Skin: no c/c/e, no obvious rash MSK: FROM x 4 Neuro: CN 2-12 grossly intact, no new focal deficits Psych: calm - Constitutional Vitals: Temp Pulse Resp BP Pulse Ox 97.9 F 51 L 20 139/51 99 03/16/18 12:54 03/16/18 12:54 03/16/18 12:54 03/16/18 12:54 03/16/18 12:54 Plan Activity: up only with assistance, fall precautions, other (no strenous activities) Diet: low salt, diabetic, advance as tolerated Follow up with: PRIMARY CARE, [Primary Care Provider] - 3-5 Days ADDIE CASTANEDA MD [Staff Physician] - 7 Days DEYA JARRELL MD [Staff Physician] - 7 Days
== END 2018-03-16 16:30 | disposition home health service (06) | DRG 637 ==
LOC: ED 15:41 → 4A 23:56
PROVIDERS: ADMIT Internal Medicine; ATTEND Internal Medicine
DX: E11.649 Type 2 diabetes mellitus with hypoglycemia without coma (principal); G93.41 Metabolic encephalopathy; I69.354 Hemiplegia and hemiparesis following cerebral infarction affecting left non-dominant side; R00.1 Bradycardia, unspecified; F03.90 Unspecified dementia, unspecified severity, without behavioral disturbance, psychotic disturbance, mood disturbance, and anxiety; E78.5 Hyperlipidemia, unspecified; I10 Essential (primary) hypertension; E11.51 Type 2 diabetes mellitus with diabetic peripheral angiopathy without gangrene; I65.21 Occlusion and stenosis of right carotid artery; I08.1 Rheumatic disorders of both mitral and tricuspid valves; I72.8 Aneurysm of other specified arteries; Z79.82 Long term (current) use of aspirin; Z91.030 Bee allergy status
CPT/HCPCS: 36415; 70450; 71045; 80053; 80307; 80320; 81001; 82550; 82553; 82962; 84443; 84484; 85025; 85610; 85730; 87116; 93005; 93010; 93306; 99291; A9270-GY; G0480; J1644